=== PATIENT | male | born 1940 | race Caucasian/White ===

== ENCOUNTER 2019-08-29 07:37 | Outpatient (CLI) | payer BC ==
[2019-08-30] MEDS ORDERED: FURO20TA3 PO (13:35)
[2019-08-30] MEDS ORDERED: AMLO-150 PO (13:36)
[2019-08-30] MEDS ORDERED: ATOR20TA37 PO (13:37)
[2019-08-30] MEDS ORDERED: INSU100C SQ-INSULIN (13:38)
[2019-08-30] MEDS ORDERED: SPIR25TA5 PO (13:39)
[2019-08-30] MEDS ORDERED: INSU100V8 SQ (13:39)
[2019-08-30] MEDS ORDERED: LISI-170 PO (13:40)
== END 2019-08-29 23:59 | disposition home or self-care (01) ==
LOC: CVU 07:37
PROVIDERS: ATTEND Family Medicine
DX: I08.3 Combined rheumatic disorders of mitral, aortic and tricuspid valves (principal); I50.9 Heart failure, unspecified
CPT/HCPCS: 93306

== ENCOUNTER 2019-08-30 12:15 | Observation (INO) | payer BC ==
[~2019-08-30] VITALS: Ht 177.8 cm; Wt 95.4 kg
[2019-08-30] MEDS: SODIUM CHLORIDE 0.9% 1,000 ML IV SCH ×2 (13:06→21:01)
[2019-08-30] MEDS ORDERED: LIDOCAINE 2%, 20ML ONE (13:11)
[2019-08-30] MEDS ORDERED: CEFAZOLIN PMX 1GM/50ML 50 ML ONE (13:11)
[2019-08-30] MEDS ORDERED: CEFAZOLIN 1,000 MG ONE (13:11)
[2019-08-30] MEDS ORDERED: FENTANYL PF 100 MCG/2ML ONE (13:11)
[2019-08-30] MEDS ORDERED: MIDAZOLAM 1 MG/ML, 5ML ONE (13:11)
[2019-08-30 13:27] VITALS: BP 150/82
[2019-08-30] MEDS ORDERED: CEFAZOLIN PMX 1GM/50ML 50 ML IVPB ONE (13:30)
[2019-08-30] MEDS ORDERED: FURO20TA3 PO (13:35)
[2019-08-30] MEDS ORDERED: AMLO-150 PO (13:36)
[2019-08-30] MEDS ORDERED: ATOR20TA37 PO (13:37)
[2019-08-30] MEDS ORDERED: INSU100C SQ-INSULIN (13:38)
[2019-08-30] MEDS ORDERED: INSU100V8 SQ (13:39)
[2019-08-30] MEDS ORDERED: SPIR25TA5 PO (13:39)
[2019-08-30] MEDS ORDERED: LISI-170 PO (13:40)
[2019-08-30] MEDS ORDERED: HOLD MEDICATION MC PRN (15:30)
[2019-08-30] MEDS ORDERED: HYDROcodone/APAP 5/325 TABLET PO PRN (15:30)
[2019-08-30] MEDS: INSULIN LISPRO 100 UNITS/ML, PEN SQ-INSULIN SCH (16:00)
[2019-08-30 20:39] VITALS: BP 148/87
[2019-08-30] MEDS ORDERED: INSULIN GLARGINE 100 UNITS/ML, PEN SQ-INSULIN SCH (21:00)
[2019-08-30] MEDS ORDERED: ATORVASTATIN 20 MG TABLET PO SCH (21:00)
[2019-08-30] MEDS: SODIUM CHLORIDE FLUSH 10ML SYR IVF SCH (21:50)
[2019-08-30] MEDS: CEFAZOLIN PMX 1GM/50ML 50 ML IVPB SCH (22:38)
[2019-08-31] MEDS: SODIUM CHLORIDE 0.9% 1,000 ML IV SCH ×2 (02:21→12:49)
[2019-08-31] MEDS: CEFAZOLIN PMX 1GM/50ML 50 ML IVPB SCH (06:20)
[2019-08-31 07:28] VITALS: BP 133/83
[2019-08-31] MEDS: SODIUM CHLORIDE FLUSH 10ML SYR IVF SCH (08:37)
[2019-08-31] MEDS: INSULIN LISPRO 100 UNITS/ML, PEN SQ-INSULIN SCH ×2 (08:37→12:09)
[2019-08-31] MEDS ORDERED: FUROSEMIDE 20 MG TABLET PO SCH (09:00)
[2019-08-31] MEDS ORDERED: SPIRONOLACTONE 25 MG TABLET PO SCH (09:00)
[2019-08-31] MEDS ORDERED: AMLODIPINE 5 MG TABLET PO SCH (09:00)
[2019-08-31] MEDS ORDERED: LISINOPRIL 20 MG TABLET PO SCH (09:00)
== END 2019-08-31 14:20 | disposition home or self-care (01) ==
LOC: CACL 12:15 → 5SO 15:22 → DCLOUNGE 08-31 14:11
PROVIDERS: ADMIT Internal Medicine Cardiovascular Disease; ATTEND Internal Medicine Cardiovascular Disease
DX: R94.31 Abnormal electrocardiogram [ECG] [EKG] (principal); I44.2 Atrioventricular block, complete; I10 Essential (primary) hypertension; E11.9 Type 2 diabetes mellitus without complications; E78.2 Mixed hyperlipidemia; Z79.899 Other long term (current) drug therapy
CPT/HCPCS: 33208; 71045; 71046; 82962; 96365; 96366; 99156; 99157; C1779; C1785; C1892; G0378; J0690; J1815; J2250; J3010; J3490

== ENCOUNTER 2020-01-13 09:34 | Day surgery (SDC) | payer BC ==
[~2020-01-13] VITALS: Ht 177.8 cm; Wt 100.0 kg
[~2020-01-13 09:34] MED LIST: AMLO-150 PO; ATOR20TA37 PO; FURO20TA3 PO; INSU100C SQ-INSULIN; INSU100V8 SQ; LISI-170 PO; SPIR25TA5 PO
[2020-01-13 10:31] VITALS: BP 113/76
[2020-01-13] MEDS ORDERED: OSEL75CA26 PO (10:46)
[2020-01-13] MEDS ORDERED: APIX5TAB PO (10:46)
[2020-01-13] MEDS ORDERED: INSU100V35 INJ (10:47)
[2020-01-13 10:48] LABS: ANION GAP 8 mmol/L (5-15); CHLORIDE 107 mmol/L (98-107)
[2020-01-13 10:49] LABS: CREATININE 1.06 mg/dL (0.7-1.3)
== END 2020-01-13 12:47 | disposition home or self-care (01) ==
LOC: CACL 09:34
PROVIDERS: ATTEND Internal Medicine Cardiovascular Disease
DX: I48.92 Unspecified atrial flutter (principal); Z53.8 Procedure and treatment not carried out for other reasons; I63.9 Cerebral infarction, unspecified; I10 Essential (primary) hypertension; E11.9 Type 2 diabetes mellitus without complications; E78.2 Mixed hyperlipidemia; Z79.4 Long term (current) use of insulin; Z79.899 Other long term (current) drug therapy; Z79.01 Long term (current) use of anticoagulants; Z98.890 Other specified postprocedural states
CPT/HCPCS: 36415; 71046; 80048; 92960